=== PATIENT | male | born 1975 | race Caucasian/White ===

== ENCOUNTER 2025-07-11 08:25 | Day surgery (SDC) | payer BC ==
[2025-07-11] MEDS ORDERED: BUPIVACAINE 0.5% VIAL IJ ONE (08:26)
[2025-07-11] MEDS ORDERED: methylPREDNISolone acetate IM ONE (08:26)
[2025-07-11] MEDS ORDERED: propofoL IV ONE (09:57)
[2025-07-11] MEDS ORDERED: Lactated Ringers 1,000 ML IV ONE (11:00)
--- NOTE | 2025-07-11 12:32 | XRAY ---
Indication: Bilateral hip injection. Intraoperative fluoroscopy provided for 19 seconds. 2 digital spot image submitted for interpretation demonstrates needle tips projecting lateral to left and right femur necks. Small amount of contrast injected for needle tip placement. Correlate with intraoperative findings/report.
--- NOTE | 2025-07-11 12:53 | XRAY ---
19 seconds of fluoroscopy was used in surgery for a bilateral intra-articular hip injection.
== END 2025-07-11 10:25 | disposition home or self-care (01) ==
LOC: SDC-PAIN 08:25
PROVIDERS: ATTEND Psychiatry & Neurology Pain Medicine
DX: M16.0 Bilateral primary osteoarthritis of hip (principal); E11.9 Type 2 diabetes mellitus without complications